=== PATIENT | male | born 1940 | race Caucasian/White ===

== ENCOUNTER → 2018-11-19 13:53 | Outpatient (CLI) | payer MEDICARE, BC, SELFPAY ==
--- NOTE | 2018-11-19 | DI.CT.S_ITS ---
PROCEDURE: CT UE RT WO CON INDICATIONS: PRIMARY OSTEOARTHRITIS OF RIGHT SHOULDER TECHNIQUE: Noncontrast 1-1.5 mm thick sections acquired from the acromioclavicular joint to the inferior scapula, with coronal and sagittal reformatting. COMPARISON: [facility] [place], CR, XR SHOULDER 2+ VIEWS RIGHT, 03/12/2018, 14:39. FINDINGS: Image quality: Diagnostic Bones: There is no acute fracture or dislocation identified involving the osseous structures of the right shoulder. No suspicious osseous lesions are present. There are severe degenerative changes of the glenohumeral joint with prominent joint space narrowing, large marginal osteophytes, bony remodeling, and degenerative cystic change. There is a very large right sided glenohumeral joint effusion. Chondrocalcinosis of the joint appears to be present. Prominent degenerative changes are noted involving the right sternoclavicular joint. Age-appropriate degenerative changes of the spine are not adequately characterized. Widening of the acromi clavicular joint is present with mild associated degenerative changes. Soft tissues: Homogeneous calcifications overlying the posterior margin of the greater tuberosity of the humeral head are present. No significant atrophy is appreciated involving the rotator cuff muscles. The please note that the tendons, ligaments, and cartilaginous structures of the elbow are not adequately characterized on CT. Included portions of the right lung and mediastinum are grossly within normal limits. There is no axillary lymphadenopathy. IMPRESSION: 1. Severe degenerative changes of the glenohumeral joint with an associated very large joint effusion. 2. Apparent chondrocalcinosis versus small intra-articular joint bodies. 3. Calcific tendinitis of the infraspinatus tendon. The Dictated by: Eliud Trotter M.D. on 11/19/2018 at 16:05 Approved by: Eliud Trotter M.D. on 11/19/2018 at 16:10
== END ==
PROVIDERS: PCP Family Medicine; Visit Provider Orthopaedic Surgery
DX: M19.011 Primary osteoarthritis, right shoulder (principal); M75.31 Calcific tendinitis of right shoulder
CPT/HCPCS: 73200

== ENCOUNTER → 2019-04-11 11:49 | Outpatient (CLI) | payer MEDICARE, BC, SELFPAY | PROVIDERS: PCP Family Medicine; Visit Provider Orthopaedic Surgery | DX: Z01.818 Encounter for other preprocedural examination (principal) | CPT/HCPCS: 93005 ==

== ENCOUNTER 2019-05-09 06:05 | Inpatient (IN) | payer MEDICARE, BC, SELFPAY ==
[2019-04-25 08:36] VITALS: BMI 25.8
[2019-05-09] VITALS (13 sets, daily range): BP systolic 106–135; BP diastolic 48–73; PULSE 51–72; RESP 14–21; TEMP 35.6–36.8; O2SAT 89–98; BMI 25.9
--- NOTE | 2019-05-09 06:00 | DI.RAD.S_ITS ---
PROCEDURE: XR SHOULDER RT 1V INDICATIONS: Post op total shoulder TECHNIQUE: One view of the shoulder were acquired. COMPARISON: None. FINDINGS: Bones: Expected appearance post total shoulder arthroplasty. Soft tissues: No suspicious soft tissue calcifications. Surgical drain in place. IMPRESSION: Expected immediate postoperative appearance, status post right shoulder arthroplasty. Dictated by: Damaso Schwartz M.D. on 05/09/2019 at 10:34 Approved by: Damaso Schwartz M.D. on 05/09/2019 at 10:35
[2019-05-09] MEDS: CELECOXIB 200 MG CAPSULE PO (06:53)
[2019-05-09] MEDS: ACETAMINOPHEN 325 MG TABLET 975 MG PO (06:54)
[2019-05-09] MEDS: PREGABALIN 75 MG CAPSULE PO (06:54)
[2019-05-09] MEDS: LACTATED RINGERS 1,000 ML 42 ML IV ×2 (06:54→08:30)
--- NOTE | 2019-05-09 07:35 | PM.PREOP ---
Pre-operative Note Interval Note History & Physical reviewed/Exam performed by Physician: Yes Changes to H&P: No
--- NOTE | 2019-05-09 07:38 | P.OP_ITS ---
Operative Date/Time/Diagnoses Date of procedure: 05/09/19 Time of procedure: 09:50 Pre-op diagnosis: Right shoulder osteoarthritis Post-op diagnosis: other (1. Same 2. Calcific tendinitis with small full- thickness anterior supraspinatus rotator cuff tear) Procedure & Clinicians Procedure: Right total shoulder replacement Same procedure as scheduled: No (Also rotator cuff repair of a small supraspinatus rotator cuff tear) Indications: The patient has had progressively worsening right shoulder pain with radiographic changes consistent with arthritis. Non-operative management has failed and the patient has requested total shoulder replacement. The risks, benefits and alternatives to surgery were discussed with the patient prior to proceeding. Risks discussed included, but were not limited to, failure to relieve pain, stiffness, infection, nerve damage, deep venous thrombosis, pulmonary embolism, stroke, coma, heart attack, permanent paralysis and , as well as the potential need for eventual revision of the prosthetic. Surgeon: Steffen Suarez Freezer Worker: Karen Tran'Brien Click Yes if Unassisted: No Anesthesia Type: General, Peripheral nerve block and Local Operative Notes Findings: Significant osteoarthritis of the right shoulder Closure Type: primary Specimen(s): none sent Prosthetic devices, grafts, tissues, transplants, or devices: Implants used in this procedure were manufactured by the [employer] and included an Altivate short stem total shoulder system with a size 12 short stem humeral component, a neutral neck, a 46 mm x 20 mm neutral [place] humeral head and a 46 mm all polyethylene E plus pegged glenoid. Applied: implant(s) Estimated Blood Loss (mL): 100 Blood products transfused: none Procedure in detail: The patient was seen in the pre-operative area, where the patient identified the right shoulder as the operative site and this was marked with my initials. The patient received pre-operative antibiotics, underwent an interscalene block, and was taken to the operating room and placed on the operative table in the supine position. After satisfactory anesthesia, a full ?time out? was performed. The patient was repositioned in the ?beach chair? position using a dedicated positioner. All pressure points were well padded, and the knees were slightly bent to prevent tension on the sciatic nerves. The right arm was prepared from the fingers to the base of the neck with ChloroPrep in the usual fashion and draped through sterile drapes. An approximately 15 cm incision was created, starting at the clavicle above the coracoid process and extended towards the deltoid insertion. The deltopectoral interval was used to access the shoulder. The cephalic vein was taken medially. A self retaining retractor was placed. The upper centimeter of the pectoralis major tendon was released. The ?three sisters? were identified and cauterized. The axillary nerve was palpated and protected throughout the case. The biceps was released from its groove and tenodesed over the top of the pectoralis major tendon. The subscapularis was released from the lesser tuberosity with a subscapularis peel and tagged for later repair. The shoulder was dislocated and a cutting guide was used for the proximal humeral osteotomy in 30 degrees of retroversion. A starter reamer was used followed by the cylindrical reamers. This continued in larger sizes in till cortical bite was achieved. Sequential broaching was then performed until a line to line fit with the reamer occurred. A proximal humeral protector was then placed. We then removed the self-retaining retractor and placed retractors to access the glenoid. The subscapularis was released with a ?360 degree release? with care being taken to protect the axillary nerve with the inferior portion of this procedure. The remnant of labrum and biceps stump were removed. The appropriate size reamer was chosen with the glenoid sizer, and the guide pin placed. The glenoid was appropriately reamed. The guide for the peripheral holes was used and the center hole enlarged. The trial glenoid was placed with good stability. We then cemented the final implant into place after irrigating the peg holes and drying them with thrombin-soaked Gelfoam. We returned our attention to the humerus, a trial humeral head was applied and a trial reduction performed. Stability was checked with 50% posterior translation, 45? external rotation at the side with the subscapularis held in the repaired position, and 70? internal rotation in the ?scarecrow position?. This was felt to be satisfactory and the appropriate implants were opened. Five holes were drilled along the humeral osteotomy and #2 TiCron sutures placed for eventual subscapularis repair. The humeral prosthetic was impacted into the humerus. The humeral head was applied when the stem was still slightly proud and impacted to both seat the head and fully seat the stem. The joint was relocated one final time. The joint was irrigated and the subscapularis repaired to the previously placed sutures using Moo-Javy sutures. The top of the subscapularis was closed to the leading edge of the supraspinatus with a figure of 8 #2 TiCron to close the rotator interval. This suture was also used to close a very small rotator cuff tear of the supraspinatus. A deep drain was placed and brought out supero- laterally. The deltopectoral interval was closed with interrupted 0 Vicryl. The subcutaneous layer was closed with 3-0 Vicryl, and the skin with a running 3-0 V-Lock suture and SteriStrips. An Aquacel Ag dressing was applied, the patient?s arm was placed in a sling, and the patient was taken to recovery having tolerated the procedure well. Complications: none Condition: stable Disposition: PACU Plan for aftercare: The patient will be maintained on a standard total shoulder replacement protocol with passive range of motion limited to 90 degrees forward flexion, 0 degrees external rotation at the side, 0 degrees abduction and internal rotation to the body. The patient will receive aspirin and sequential compression devices for DVT prophylaxis. The patient will be discharged home when safe for the home environment, likely tomorrow.
--- NOTE | 2019-05-09 08:05 | SUR.PREOP ---
Block start time [0739] . Monitoring initiated and maintained throughout procedure. Oxygen and medications given per anesthesiologist instructions. Patient remained stable throughout procedure, no adverse reactions noted. Block end time [0752 ].
[2019-05-09] MEDS: CEFAZOLIN 1 GM VIAL IV (08:12)
--- NOTE | 2019-05-09 08:28 | SUR.OPER ---
Beach chair with Schlein shoulder positioner. Lower body on padded OR bed. Head in foam padded head cradle, secured with straps. Non-operative arm secured <90 degrees abduction. Pillow under knees. Safety belt at thigh. Cloth tape over blanket over lower legs.
--- NOTE | 2019-05-09 08:35 | PM.PROC.1 ---
Procedures Date/Time Date of procedure: 05/09/19 Time of procedure: 07:45 General Procedure description: Ultrasound guided interscalene brachial plexus nerve block for post op pain control after total shoulder arthroplasty by Dr. Suarez. Risks and benefits of procedure discussed with patient. ASA monitoring applied to patient. 02 given via nasal cannula. 1 mg Versed and 50 mcg fentanyl given for procedural sedation. Skin site was prepped with chlorhexidine and allowed to fully dry. Sterile gloves, mask, hat and probe cover were used to maintain sterility. 2% lidocaine and 30ga needle was used to make a small skin wheal at needle insertion site. Under ultrasound guidance, a 21ga 50mm Pajunk needle was directed into the interscalene groove (middle/anterior scalenes) near the brachial plexus. Patient reported no parasthesias. After negative aspiration, 20 mL 0.5% ropivicaine and 10mg dexamethasone were injected around brachial plexus. Patient tolerated procedure well.
[2019-05-09] MEDS: TRANEXAMIC ACID 1,000 MG VIAL 1000 MG INJ (08:36)
[2019-05-09] MEDS: THROMBIN (RECOMBINANT) 5,000 UNIT VIAL 5000 UNIT TOP (08:37)
[2019-05-09] MEDS: BUPIVACAINE 0.5% W/ EPI (PF) VIAL 30 ML INJ (08:37)
--- NOTE | 2019-05-09 08:55 | PC.NURSE ---
Day shift: Pt not on AC unit at this time.
--- NOTE | 2019-05-09 10:31 | SUR.PHASEI ---
REPORT CALLED TO STEFANIA MONTERO ON ACUTE CARE FLOOR. PT IN STABLE CONDITION, VSS. IV SITE CLEAR AND INFUSING WITHOUT DIFFICULTLY. DRSG TO SURGICAL SHOULDER OBSERVED TO BE C/D/I. HEMAVAC IN PLACE WITH COMPRESSION SUCTION. PT REPORTS DULL SENSTATION AND WEAK STRENGTH RELATED TO NERVE BLOCK. SURGICAL EXTREMITY WARM TO TOUCH, PINK IN COLOR, AND +PULSE. SLING IN PLACE OF OPERATIVE EXTREMITY. PT DENIES ANY PAIN/DISCOMFORT OR NAUSEA.
--- NOTE | 2019-05-09 10:47 | SUR.PHASEI ---
PT TRANSFERRED TO ACUTE CARE FLOOR IN STABLE CONDITION, VSS. BEDSIDE REPORT GIVEN TO STEFANIA WRIGHT UPON ARRIVAL TO ACUTE CARE FLOOR. PT FAMILY IN ROOM UPON ARRIVAL. TRANSFERRED CARE OF PT TO STEFANIA WRIGHT AT THIS TIME.
--- NOTE | 2019-05-09 11:07 | PC.NURSE ---
Day shift: Pt on unit at approx 1100 from PACU. Family in room for support. Denies ay pain or chest pain. VS ok. RA 97%. Agrees to not get OOB w/o help from staff. Call light in reach.
[2019-05-09] MEDS: LACTATED RINGERS 1,000 ML 125 ML IV ×2 (12:00→19:23)
[2019-05-09] MEDS: ACETAMINOPHEN 325 MG TABLET PO ×3 (12:55→23:58)
[2019-05-09] MEDS: IBUPROFEN 400 MG TABLET PO ×3 (12:55→23:58)
--- NOTE | 2019-05-09 13:46 | PT.IIE ---
Current Diagnoses Primary osteoarthritis, right shoulder (05/09/19) Surgery Performed Operation Date: 05/09/19 07:45 Actual Procedures p Total Shoulder Arthroplasty(Right) - Steffen Suarez MD Surgical History (Last Updated 04/25/19 @ 09:24 by Agata Cohen, RN) History of carpal tunnel surgery of left wrist (Acute) History of colonoscopy with polypectomy (Acute) History of right cataract extraction (Acute) Hx of arthroscopy of left knee (Acute) Hx of shoulder surgery (Acute) S/P cervical spinal fusion (Acute 12/03/16) Medical History (Last Updated 04/25/19 @ 09:14 by Agata Cohen RN) Asthma (Acute) BCC (basal cell carcinoma), eyelid (Acute) Former smoker (Acute) Hearing impaired (Acute) Left shoulder pain (Acute) Migraines (Acute) Osteoarthritis (Acute) Physical Therapy Inpatient Evaluation/Re-Eval M1 PT/OT-IP Prior Functional Status Start: 05/09/19 11:03 Freq: NEEDED Status: Active Protocol: Document 05/09/19 13:46 RS (Rec: 05/09/19 13:57 RS [id number]) Medical Review Prior Functional Status Medical History Reviewed Yes Diet/Fluid Consistency Regular Communication no known deficits Mobility and Gait ind without device Activities of Daily Living and IADL's denies needing assist for any self-care Prior Functional Level (Other details) considers himself very active Social History Household Members spouse Living Arrangements House Number of Floors (Floors) Two Floors Number of Stairs To Enter/Railing? 3STE, full flight inside Employment Status Retired M2 PT-IP Current Condition Start: 05/09/19 11:03 Freq: NEEDED Status: Active Protocol: Document 05/09/19 13:46 RS (Rec: 05/09/19 13:57 RS [id number]) Physical Therapy Current Condition Current Condition Evaluation Date 05/09/19 Treatment Diagnosis R TSA Onset Date 05/09/19 Precautions Shoulder Precautions Sling PROM Internal Rotation to Body No External Rotation No Abduction Forward Flexion to 90 degrees Pendulums M3 PT-IP Subjective Start: 05/09/19 11:03 Freq: NEEDED Status: Active Protocol: Document 05/09/19 13:46 RS (Rec: 05/09/19 13:57 RS [id number]) Subjective Physical Therapy Visit Type Type Initial Evaluation Visit Start Time 13:00 Visit Stop Time 13:46 Total Visit Minutes 46 Physical Therapy Visit Comments Patient Comments Pt reports doing well, arm/ hand is still quite numb, denies any other issues, very agreeable to participate in therapy. Patient Goals go home Therapy Pain Assessment Pain When Pain Assessed At Rest Pain Present Pain Present Denied Pain M4 PT-IP Mobility and Gait Start: 05/09/19 11:03 Freq: NEEDED Status: Active Protocol: Document 05/09/19 13:46 RS (Rec: 05/09/19 13:57 [id number]) PT-Bed Mobility Assessment Supine to Sit Supine to Sit Standby Assistance Sit to Supine Sit to Supine Standby Assistance Scooting Scooting to Edge of Bed Standby Assistance Scooting Up and Down in Bed Standby Assistance PT-Transfer Assessment Sit to and From Stand Sit to and from Stand Standby Assistance Equipment Transfer Assistive Device None Transfers Transfer Destination Chair Transfer Technique walked Transfer Ability Level of Assist Standby Assistance Comments Mobility Comments Pt mobilizes well, RUE really is flaccid still, but able to perform all bed mobility and transfers without additional physical assist. Gait Assessment Gait Gait Assistance Required: Standby Assistance Distance (Feet) 280 Assistive Devices Assistive Device None Gait Deviations General Gait Pattern Within Normal Limits Wide Based Gait Comments Gait Comments Pt quite stable and with mostly normal gait quality except slightly wide HAZEL with a little extra lateral weight shifting. Stair Climbing Assessment Comments Stair Climbing Comments not tested this session PT-Balance Assessment Sitting Balance and Reactions Static Sitting Balance Ability Normal Dynamic Sitting Balance Ability Normal Standing Balance and Reactions Static Standing Balance Ability Normal Dynamic Standing Balance Ability Good Device Used none M5 PT-IP Objective Assessments Start: 05/09/19 11:03 Freq: NEEDED Status: Active Protocol: Document 05/09/19 13:46 RS (Rec: 05/09/19 13:57 RS [id number]) Orientation Orientation/Cognition Level of Alertness Alert Orientation Name Age Birthday Month Date Year Day of Week Place Situation Language Function Ability No Deficits Noted Safety Awareness Understands Safety Issues Memory Description No Deficits Noted Gross Range of Motion Upper Extremity ROM Assessment Right Impaired Lower Extremity ROM Assessment Within Functional Limits Strength Upper Extremity Strength Assessment Right Impaired Lower Extremity Strength Assessment Within Functional Limits Sensation Assessment Sensation Gross Sensation Right UE Impaired Light Touch Impaired Proprioception (Position) Impaired Sensation Description Numbness M6 PT-IP Treatment Start: 05/09/19 11:03 Freq: NEEDED Status: Active Protocol: Document 05/09/19 13:46 RS (Rec: 05/09/19 13:57 RS [id number]) Physical Therapy Treatment Education Education Provided Precautions Weight Bearing Status Post-Op Packet Safety M7 PT-IP Assessment and Plan Start: 05/09/19 11:03 Freq: NEEDED Status: Active Protocol: Document 05/09/19 13:46 RS (Rec: 05/09/19 13:57 RS [id number]) PT Summary Assessment and Plan Potential Rehabilitation Potential Excellent Status of Condition at Evaluation Stable Summary Assessment Summary Pt presents with the expected deficits of decreased ROM/ strength/sensation of RUE after a R TSA. Despite this, pt is able to mobilize fairly well, currently requiring only SBA for management of IV pole and to monitor after such a recent surgery. Pt will be safe to go home tomorrow with after 1 more PT session for stair training and after OT evaluation for ADLs and family training. Pt will eventually benefit from outpatient PT once cleared by surgeon. Goals Bed Mobility Goal Independent Transfer Goal Independent Gait Goal Independent Gait Distance 500 Other Goals up/down full slight of stairs with railing and supervision Days to Meet Goals 1 Frequency of Treatment Frequency Of Treatment Once a Day Treatment Plan Physical Therapy Treatment Plan Bed Mobility Training Transfer Training Gait Training Therapeutic Exercise Balance Retraining Post Op Education Discharge Planning Hot or Cold Pack Neuromuscular Re-ed Coordination Retraining Manual Therapy Other Recommendations and Next Treatment stair training Focus Recommendations To Nursing Amount of Assist Needed Standby Assistance Discharge Recommendations PT Discharge Recommendations Home with Assistance Outpatient PT
--- NOTE | 2019-05-09 18:14 | PC.NURSE ---
Addendum entered by Jennifer Thompson R.N. 05/09/19 21:25: Pt visiting w/family all evening. Reuesting med for discomfort 410. Med w/percolone as per orders @ 2039. Pt states had good relief. Dsg remains CDI. IVF continue as per orders. Call light w/in reach, bed alarm on for pt safety. Continue as per orders. Original Note: Pt awake, visiting w/family. George discomfort at this time. Dsg to the right shoulder CDI, arm in sling. CMS to extremity ++ IV LR @ 125cc/hr via pump infusing into LFA w/o incidense. Stable post op course. Call light w/in reach. Pt calls appropriately for needs.
[2019-05-09] MEDS: ASPIRIN EC 81 MG TABLET PO (20:33)
[2019-05-09] MEDS: DOCUSATE 100 MG CAPSULE PO (20:34)
[2019-05-09] MEDS: OXYCODONE IR 5 MG TABLET PO (20:40)
[2019-05-10] VITALS: BP 121/62; PULSE 61; RESP 16; TEMP 36.6; O2SAT 96
[2019-05-10] MEDS: OXYCODONE IR 5 MG TABLET PO ×2 (01:49→07:56)
[2019-05-10] MEDS: LACTATED RINGERS 1,000 ML 125 ML IV (03:25)
[2019-05-10] MEDS: ACETAMINOPHEN 325 MG TABLET PO ×2 (04:23→07:44)
[2019-05-10] MEDS: IBUPROFEN 400 MG TABLET PO ×2 (04:24→07:44)
[2019-05-10 04:32] VITALS: BP 126/66; PULSE 58; RESP 16; TEMP 36.4; O2SAT 97
[2019-05-10 05:19] LABS: Hematocrit 35.8 % (41-53); Hemoglobin 12.2 g/dL (13.5-17.5); Mean Corpuscular Hemoglobin 31.1 PG (26-34); Mean Corpuscular Volume 91.4 fL (80-100); Platelet Count 165 X10^3/uL (150-400); Red Blood Cell Count 3.92 X10^6/uL (4.5-5.9); Red Cell Distribution Width 13.5 % (11.6-14.8); White Blood Cell Count 6.7 X10^3/uL (4.5-11.0)
[2019-05-10 07:30] VITALS: BP 117/62; PULSE 73; RESP 15; TEMP 36.4; O2SAT 98
[2019-05-10] MEDS: ASPIRIN EC 81 MG TABLET PO (07:44)
[2019-05-10] MEDS: DOCUSATE 100 MG CAPSULE PO (07:46)
--- NOTE | 2019-05-10 10:02 | PM.DS.1 ---
History of Present Illness Date Patient Seen: 05/10/19 Time Patient Seen: 10:03 Chief complaint: [id number] Narrative: Hospital day 2, postop day 1 following right total shoulder arthroplasty by Dr. Suarez. Patient remained stable postoperatively. Using sling regularly. I did work with PT well. He does have help at home. He is scheduled to go to [facility] in [place]. Patient desiring to go home today. Discharge Providers Date of admission: 05/09/19 06:05 Discharge Date: 05/10/19 Primary care physician: Alexander Short MD Consults: 05/09/19 10:54 Consult to Discharge Planning Routine Comment: Consult to Physical Therapy Evaluate & Treat Comment: 90 FF, 0 ER, 0 Abd, IR to body Physician Instructions: Evaluate and Treat Discharge provider: Mekhi Carter PA-C Summary Discharge Diagnosis: Status post right total shoulder arthroplasty Hospital Course: Patient brought to hospital on 05/09/2019 for above-noted surgery. He remained stable postoperatively. Progressed with PT. Ready for discharge home on postop day 1. Status at Discharge Cognitive/behavioral status at discharge: oriented Overall status at discharge: patient is progressing back to baseline Time Spent with Patient Less than 30 minutes Exam Vital Signs (past 8 hours): - 05/10/19 04:32 05/10/19 07:30 Temperature 97.5 F L 97.5 F L Pulse Rate 58 L 73 Respiratory Rate 16 15 Blood Pressure 126/66 117/62 Pulse Oximetry 97 98 Oxygen Delivery Method Room Air Oxygen Flow Rate 0 Narrative Exam Narrative: Alert, oriented no acute distress resting in bed. Right arm. Arm in sling. Aquacel dressing to right shoulder is dry without drainage or inflammation. Hemovac placed. Street Engineer strong and equal. Pulses and sensation to hand symmetrical. Objective Labs Result Diagrams: 05/10/19 04:43 Labs: Laboratory Results - last 24 hr 05/10/19 04:43 WBC 6.7 RBC 3.92 L Hgb 12.2 L Hct 35.8 L MCV 91.4 MCH 31.1 MCHC 34.0 RDW 13.5 Plt Count 165 Discharge Plan Discharge Plan Patient Disposition: Home Discharge comment: Discharged home today after cleared by PT/OT. Will use right arm sling x6 weeks postop. Discharge Med Rec/Prescriptions Prescriptions: New acetaminophen 325 mg Tablet 325 mg PO Q4H Qty: 30 RF: 0 aspirin 81 mg Tablet,Delayed Release (Dr/Ec) 81 mg PO BID Qty: 60 RF: 0 ibuprofen 400 mg Tablet 400 mg PO Q4H Qty: 30 RF: 0 oxycodone 5 mg Tablet 5 mg PO Q3HR PRN (Reason: Pain, Moderate (4-6)) Qty: 30 RF: 0 Continued Vitamin B-12 250 MCG tablet 1,000 mg PO QDAY Qty: 0 RF: 0 Vitamin D3 4,000 UNIT capsule 4,000 u PO QDAY Qty: 0 RF: 0 Follow up/Referrals: Alexander Short MD [Primary Care Provider] - Provider Discharge Instructions Diet: Diet as Tolerated Activity: Use right arm sling x6 weeks postop. No lifting or carrying with right arm. Right arm passive range of motion forward flexion 90?, external rotation 0?, AB duction 0?. May do Codman/pendulum exercises as needed. Cold/Heat Therapy: Cold pack to right shoulder as needed. Skin/Wound/Dressing Care Report to your healthcare provider any signs of infection, such as:: chills, fever, night sweats, increased pain, unusual drainage and unusual redness Dressing: Keep Aquacel dressing in place until postop visit. May shower with dressing on. Visit Report/Discharge Packet Instructions: DI for Shoulder Replacement Discharge Data Primary Care Provider: Alexander Short Attending Provider: Steffen Suarez Admit Date/Time: 05/09/19 06:05
--- NOTE | 2019-05-10 10:06 | P.DS_ITS ---
History of Present Illness Date Patient Seen: 05/10/19 Time Patient Seen: 10:03 Chief complaint: [id number] Narrative: Hospital day 2, postop day 1 following right total shoulder arthroplasty by Dr. Suarez. Patient remained stable postoperatively. Using sling regularly. I did work with PT well. He does have help at home. He is scheduled to go to [facility] in [place]. Patient desiring to go home today. Discharge Providers Date of admission: 05/09/19 06:05 Discharge Date: 05/10/19 Primary care physician: Alexander Short MD Consults: 05/09/19 10:54 Consult to Discharge Planning Routine Comment: Consult to Physical Therapy Evaluate & Treat Comment: 90 FF, 0 ER, 0 Abd, IR to body Physician Instructions: Evaluate and Treat Discharge provider: Mekhi Carter PA-C Summary Discharge Diagnosis: Status post right total shoulder arthroplasty Hospital Course: Patient brought to hospital on 05/09/2019 for above-noted surgery. He remained stable postoperatively. Progressed with PT. Ready for discharge home on postop day 1. Status at Discharge Cognitive/behavioral status at discharge: oriented Overall status at discharge: patient is progressing back to baseline Time Spent with Patient Less than 30 minutes Exam Vital Signs (past 8 hours): - 05/10/19 04:32 05/10/19 07:30 Temperature 97.5 F L 97.5 F L Pulse Rate 58 L 73 Respiratory Rate 16 15 Blood Pressure 126/66 117/62 Pulse Oximetry 97 98 Oxygen Delivery Method Room Air Oxygen Flow Rate 0 Narrative Exam Narrative: Alert, oriented no acute distress resting in bed. Right arm. Arm in sling. Aquacel dressing to right shoulder is dry without drainage or inflammation. Hemovac placed. Sas Analyst strong and equal. Pulses and sensation to hand symmetrical. Objective Labs Result Diagrams: 05/10/19 04:43 Labs: Laboratory Results - last 24 hr 05/10/19 04:43 WBC 6.7 RBC 3.92 L Hgb 12.2 L Hct 35.8 L MCV 91.4 MCH 31.1 MCHC 34.0 RDW 13.5 Plt Count 165 Discharge Plan Discharge Plan Patient Disposition: Home Discharge comment: Discharged home today after cleared by PT/OT. Will use right arm sling x6 weeks postop. Discharge Med Rec/Prescriptions Prescriptions: New acetaminophen 325 mg Tablet 325 mg PO Q4H Qty: 30 RF: 0 aspirin 81 mg Tablet,Delayed Release (Dr/Ec) 81 mg PO BID Qty: 60 RF: 0 ibuprofen 400 mg Tablet 400 mg PO Q4H Qty: 30 RF: 0 oxycodone 5 mg Tablet 5 mg PO Q3HR PRN (Reason: Pain, Moderate (4-6)) Qty: 30 RF: 0 Continued Vitamin B-12 250 MCG tablet 1,000 mg PO QDAY Qty: 0 RF: 0 Vitamin D3 4,000 UNIT capsule 4,000 u PO QDAY Qty: 0 RF: 0 Follow up/Referrals: Alexander Short MD [Primary Care Provider] - Provider Discharge Instructions Diet: Diet as Tolerated Activity: Use right arm sling x6 weeks postop. No lifting or carrying with right arm. Right arm passive range of motion forward flexion 90?, external rota tion 0?, AB duction 0?. May do Codman/pendulum exercises as needed. Cold/Heat Therapy: Cold pack to right shoulder as needed. Skin/Wound/Dressing Care Report to your healthcare provider any signs of infection, such as:: chills, fever, night sweats, increased pain, unusual drainage and unusual redness Dressing: Keep Aquacel dressing in place until postop visit. May shower with dressing on. Visit Report/Discharge Packet Instructions: DI for Shoulder Replacement Discharge Data Primary Care Provider: Alexander Short Attending Provider: Steffen Suarez Admit Date/Time: 05/09/19 06:05
--- NOTE | 2019-05-10 10:58 | CM.DANOTE ---
DCP/Assessment: Reviewed chart. Patient is a 78yr old male admitted to [facility] for right TSA performed on 05-09-[address] Suarez. PCP is Dr. Short. Primary payor is 1)Medicare 2)[facility] out of [facility]. Met with patient explained CM/SW role. Patient in bed, alert and oriented at time of visit. Family at bedside. Patient reports that he plans to d/c home today. Patient denies any d/c planning needs and family confirms that patient will have support. Patient scheduled to see therapy prior to discharge. No additional needs identified. P: Home today. JOANNE Jones Discharge Planning/Care Management Advanced directive, confirm from FAMILY Start: 05/09/19 11:57 Freq: Q24H Status: Active Protocol: Document 05/09/19 11:58 YAD (Rec: 05/09/19 11:59 YAD [id number]) Advance Directive, confirm on record Time 11:59 Person contacted Pt's spouse Copy received No CM Discharge Assessment Start: 05/10/19 10:56 Freq: Status: Active Protocol: Document 05/10/19 10:56 KJS (Rec: 05/10/19 10:58 KJS [id number]) Discharge Planning Assessment Assigned [address] Man JOANNE Jones Contact Information Deja Ramos (spouse) [phone] Advance Directives? Yes Advance Directives on File No History Provided By Patient Family Member Significant Other Medical Record Prior Living Arrangements House Household Members spouse Type of transporation used prior to Drives own vehicle admit Independent with ADL's Yes Is patient alert and oriented? Yes Caregiver for Another No Barriers to Discharge No Discharge Plan Home Transportation Arrangement Family to provide transport. Referrals Initiated None needed Whiteboard Updated in Patient Room with Yes name and ext. 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 No Height 170.18 cm Weight 74.843 kg Body Mass Index (BMI) 25.8 Hearing Ability Hard of Hearing Use of Hearing Aid Visual Assist Magnifying Glass Dentition Type Teeth, Natural Present Barriers to Learning None Other Aids No Hx Anesthesia Reactions No Hx Family Anesthesia Reaction No Hx Malignant Hyperthermia No Hx Blood Transfusions No Anesthesia Review Requested Yes: PAC Courtesy re: Abnormal Pre-op EKG Contact Lens Curve Grinder No alcohol intake current alcohol intake frequency a few times a week Smoking Status Former smoker how long ago did patient quit smoking Quit greater than 40 years ago Substance Use Type does not use Pain Present Pain Reported Musculoskeletal Symptoms Joint Pain Limited Range of Motion Neck Pain History of Falling (Recent or History of No ) Patient is completely paralyzed or No completely immobile Mental Status Oriented to own ability Is patient on oxygen? No Does patient have GÓMEZ/SOB No Hx Sleep Apnea No Currently Taking a Beta Manish No Can You Climb a Flight of Stairs Without Yes SOB Hx Chest Pain No Hx SOB No Hx Syncope or Dizziness No Anti-Coagulant Therapy No Has a Psychiatric Aides Teacher No Cardiac Testing No Hx Pacemaker/ICD No Pacemaker Rep Required? No Cardiac Clearance Received Not Applicable Diet Type At Home Regular dysphagia No Urinary Catheter Present No Hx Urinary Self Catheterization No Diabetes No Hx Drug Resistant Organism No Presence of External or Internal Medical Yes: Cervical hardware Devices Have you traveled outside the [facility] in the last 30 days? Comment Marital Status Lives With spouse Prior Living Arrangements House Number of Floors (Floors) 3 or More Floors Support System Child/Children Spouse Does the Patient Have Assistance After Yes Surgery Patient Discharge Plan Description Return Home Comment Pt advised overnight length of stay per surgeon's office Feels Safe in Current Environment Yes Been Physically Hurt or Threatened By a No Person in Current Environment Do you have thoughts of harming yourself None or others? Are you currently considering suicide? No Do you have a plan to hurt yourself or No Plan others? Do You Have Any Spiritual Beliefs That No May Affect Your HC Choices? Do You Have Any Cultural Practices That No May Affect Your HC Choices? Spiritual Referral None Comment Yazdanism Who Can We Speak to About Patient's Care Family, friends Identifying Code for Release of Patient Declines to issue Information Health Care Proxy/Next of Kin Deja () Health Care Proxy Emergency Contact Name Deja () Emergency Contact Advance Directives? Yes Advance Directives on File No Requested Patient Bring Advanced Yes Directives DOS Power of Equipment Sales Specialist Yes Power of Equipment Sales Specialist Name Deja () Power of Equipment Sales Specialist PAC Instructions Durable medical equipment Medications to take/avoid Nasal antibiotic No ETOH/petroleum product on skin DOS NPO Post-op transportation Pre-surgical wash Sensory aids Sturdy shoes/comfortable clothes Do not bring valuables and remove jewelry
--- NOTE | 2019-05-10 11:16 | PC.NURSE ---
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 Paperwork signed and all questions answered. Pt has all personal belongings and MD script.
--- NOTE | 2019-05-10 12:24 | PT.IPTN ---
Current Diagnoses Primary osteoarthritis, right shoulder (05/09/19) Surgery Performed Operation Date: 05/09/19 07:45 Actual Procedures p Total Shoulder Arthroplasty(Right) - Steffen Suarez MD Physical Therapy Treatment Note M2 PT-IP Current Condition Start: 05/09/19 11:03 Freq: NEEDED Status: Discharge Protocol: Document 05/09/19 13:46 RS (Rec: 05/09/19 13:57 RS [id number]) Physical Therapy Current Condition Current Condition Evaluation Date 05/09/19 Treatment Diagnosis R TSA Onset Date 05/09/19 Precautions Shoulder Precautions Sling PROM Internal Rotation to Body No External Rotation No Abduction Forward Flexion to 90 degrees Pendulums M3 PT-IP Subjective Start: 05/09/19 11:03 Freq: NEEDED Status: Discharge Protocol: Document 05/10/19 12:16 IJS (Rec: 05/10/19 12:20 IJS [id number]) Subjective Physical Therapy Visit Type Type Treatment Note Visit Start Time 11:00 Visit Stop Time 11:08 Total Visit Minutes 8 Physical Therapy Visit Comments Patient Comments Plans to go home [place] Patient Goals Home today Therapy Pain Assessment Pain Present Pain Present Denied Pain M4 PT-IP Mobility and Gait Start: 05/09/19 11:03 Freq: NEEDED Status: Discharge Protocol: Document 05/10/19 12:16 IJS (Rec: 05/10/19 12:20 IJS [id number]) PT-Transfer Assessment Sit to and From Stand Sit to and from Stand Independent Equipment Transfer Assistive Device None Orthotic/Prosthetic Devices or Brace: No Transfers Transfer Technique walking Transfer Ability Level of Assist Independent Comments Mobility Comments Up in room, dressed and sling in place. Gait Assessment Gait Gait Assistance Required: Independent Distance (Feet) 500 Able to Maintain Weight Bearing Status Yes During Gait Assistive Devices Assistive Device None Orthotic/Prosthetic Devices or Brace: No Gait Deviations General Gait Pattern Within Normal Limits Stair Climbing Assessment Evaluation Level of Assist On Stairs Independent Standby Assistance Devices Stair Climbing Assistive Devices Left Railing Technique/Endurance Stair Climbing Direction Ascend and Descend Stair Climbing Technique Step Over Step Stair Climbing Set # Repetitions (reps) 1 Comments Stair Climbing Comments He is not concerned about stairs at home. PT-Balance Assessment Sitting Balance and Reactions Static Sitting Balance Ability Normal Dynamic Sitting Balance Ability Normal Standing Balance and Reactions Static Standing Balance Ability Normal Dynamic Standing Balance Ability Normal M5 PT-IP Objective Assessments Start: 05/09/19 11:03 Freq: NEEDED Status: Discharge Protocol: Document 05/10/19 12:20 IJS (Rec: 05/10/19 12:24 IJS [id number]) Orientation Orientation/Cognition Level of Alertness Alert Orientation Name Age Birthday Month Date Year Day of Week Place Situation Memory Description No Deficits Noted Gross Range of Motion Upper Extremity ROM Assessment Right Impaired Lower Extremity ROM Assessment Within Functional Limits Strength Upper Extremity Strength Assessment Right Impaired Lower Extremity Strength Assessment Within Functional Limits Comments Strength Comments Rightr arm in sling Coordination Assessment Gross Coordination Gross Coordination WNL Muscle Tone Muscle Tone WNL Yes M6 PT-IP Treatment Start: 05/09/19 11:03 Freq: NEEDED Status: Discharge Protocol: Document 05/09/19 13:46 RS (Rec: 05/09/19 13:57 RS [id number]) Physical Therapy Treatment Education Education Provided Precautions Weight Bearing Status Post-Op Packet Safety M7 PT-IP Assessment and Plan Start: 05/09/19 11:03 Freq: NEEDED Status: Discharge Protocol: Document 05/10/19 12:20 IJS (Rec: 05/10/19 12:24 IJS [id number]) PT Summary Assessment and Plan Potential Rehabilitation Potential Good Status of Condition at Evaluation Stable Summary Impairments Pain ROM Strength Assessment Summary POD #1 stable with mobility and ready for discharge home with family. Outpatient PT already set up. Goals Bed Mobility Goal Independent Transfer Goal Independent Gait Goal Independent Gait Distance 500 Other Goals up/down full slight of stairs with railing and supervision Discharge Recommendations PT Discharge Recommendations Home with Assistance Outpatient PT
--- NOTE | 2019-05-10 13:22 | OT.IP.EVAL ---
Current Diagnoses Primary osteoarthritis, right shoulder (05/09/19) Surgery Performed Operation Date: 05/09/19 07:45 Actual Procedures p Total Shoulder Arthroplasty(Right) - Steffen Suarez MD Past Medical History (Last Updated 04/25/19 @ 09:14 by Agata Cohen, RN) Asthma (Acute) BCC (basal cell carcinoma), eyelid (Acute) Former smoker (Acute) Hearing impaired (Acute) Left shoulder pain (Acute) Migraines (Acute) Osteoarthritis (Acute) Surgical History (Last Updated 04/25/19 @ 09:24 by Agata Cohen RN) History of carpal tunnel surgery of left wrist (Acute) History of colonoscopy with polypectomy (Acute) History of right cataract extraction (Acute) Hx of arthroscopy of left knee (Acute) Hx of shoulder surgery (Acute) S/P cervical spinal fusion (Acute 12/03/16) Occupational Therapy Inpatient Evaluation/Re-Eval M1 PT/OT-IP Prior Functional Status Start: 05/10/19 13:03 Freq: NEEDED Status: Active Protocol: Document 05/10/19 10:30 CCC (Rec: 05/10/19 13:22 [facility] [id number]) Medical Review Prior Functional Status Medical History Reviewed Yes Diet/Fluid Consistency Regular Communication no known deficits Mobility and Gait ind without device Activities of Daily Living and IADL's denies needing assist for any self-care Prior Functional Level (Other details) considers himself very active Social History Household Members spouse Living Arrangements House Number of Floors (Floors) Two Floors Number of Stairs To Enter/Railing? Pt has 3 steps to enter, and full flight inside. Home Environment Standard Height Toilet Tub/Shower M2 OT-IP Current Condition Start: 05/10/19 13:03 Freq: Status: Active Protocol: Document 05/10/19 10:30 CCC (Rec: 05/10/19 13:22 [facility] [id number]) Occupational Therapy Current Condition Current Condition Evaluation Date 05/10/19 Treatment Diagnosis S/P R TSA, muscle weakness Diagnosis Onset Date 05/09/19 Post Operative Precautions Shoulder Precautions Sling Internal Rotation to Body No External Rotation No Abduction Forward Flexion to 90 degrees Pendulums M3 OT- IP Subjective and Pain Start: 05/10/19 13:03 Freq: Status: Active Protocol: Document 05/10/19 10:30 CCC (Rec: 05/10/19 13:22 [facility] [id number]) OT- Subjective Occupational Therapy Visit Type Type Initial Evaluation Visit Start Time 10:30 Visit Stop Time 11:00 Total Visit Minutes 30 Occupational Therapy Visit Comments Patient Comments Pt wanting to go home. OT Pain Assessment Pain When Pain Assessed At Rest Pain Present Pain Present Pain Reported Location Right Shoulder Intensity 2 Scale Used Numeric (1 - 10) M4 OT- IP ADL's Start: 05/10/19 13:03 Freq: Status: Active Protocol: Document 05/10/19 10:30 [facility] (Rec: 05/10/19 13:22 [facility] [id number]) OT ADL-Dressing General Eval Upper Body Dressing Ability Maximum Assistance Lower Body Dressing Ability Moderate Assistance Comments OT Dressing Comments Pt needing assist for socks and shoes, and MAX A for sling management needs. Pt's needing to practice several times and at the end of the session able to show good safety for sling management. Pt's daughter has good awareness and safety for all however will not be staying with the pt. OT ADL-Toileting Comments OT Toileting Comments Pt SBA to get on and off the toilet. OT ADL-Bathing Comments OT Bathing Comments Pt refusing to shower and states will be okay to shower and feels that he does not need a shower chair or tub bench. OT suggested for safety especially since pt tends to want to move his right shoulder. Easier to sit to shower chair/tub bench so that his arm can rest on his lap. Pt's daughter states to look into shower chair or bench for ADL instruction for shoulder information given. M6 OT- IP Functional Cognition Start: 05/10/19 13:03 Freq: Status: Active Protocol: Document 05/10/19 10:30 [facility] (Rec: 05/10/19 13:22 [facility] [id number]) Cognitive Factors Limiting Selfcare Function Cognitive Ability Level of Alertness Alert Patient Orientation Name Place Situation Attention Span Ability Capable of Focused Attention Capable of Sustained Attention Ability to Follow Commands Able to Follow One Step Commands Memory Description No Deficits Noted Safety Awareness Decreased Ability to Apply Precautions Underestimates Need for Assistance Cognitive Comments Cognitive Assessment Comments Pt a bit impulsive and needing cues not to move his right shoulder while assisting to get sling on. In addition when pendulums tried, pt tends to elevate his right shoulder and therefore suggested pt to just focus on dangling for now . M7 OT- IP Mobility and Balance Start: 05/10/19 13:03 Freq: Status: Active Protocol: Document 05/10/19 10:30 [facility] (Rec: 05/10/19 13:22 [facility] [id number]) OT-Transfer Assessment Sit to and From Stand Sit to and from Stand Standby Assistance Transfers Transfer Ability Standby Assistance Comments Mobility Comments SBA , recommended that pt wear well fitting shoes. Pt's slipper loose and not wearing the heal up. OT- Balance Assessment Sitting Balance and Reactions Static Sitting Balance Ability Normal Dynamic Sitting Balance Ability Good Standing Balance and Reactions Static Standing Balance Ability Good M8 OT- IP Objective Assessments Start: 05/10/19 13:03 Freq: Status: Active Protocol: Document 05/10/19 10:30 [facility] (Rec: 05/10/19 13:22 [facility] [id number]) OT Gross Range of Motion Upper Extremity Range of Motion Assessment Right Impaired OT Strength Upper Extremity Strength Assessment Right Impaired OT-Muscle Tone Assessment Muscle Tone WNL Yes M9 OT- IP Assessment and Plan Start: 05/10/19 13:03 Freq: Status: Active Protocol: Document 05/10/19 10:30 [facility] (Rec: 05/10/19 13:22 [facility] [id number]) OT Summary Assessment and Plan Potential Rehabilitation Potential Good Analytic Complexity at Evaluation Low Summary OT Impairments Pain Dressing Bathing Progress Towards Goals Progressing Toward Goals Assessment Summary Pt low complexity and able to show good safety and awareness of how to assist pt for all ADl, sling management and function mobility. Pt being discharged home. Goals Patient/Caregiver Education Goal Demonstrate Post-Op Precautions Caregiver Independent Assisting Patient Days to Meet Goals 1 Frequency of Treatment Frequency Of Treatment Once a Day Treatment Plan OT Treatment Plan Patient/Family Education Discharge Planning Discharge Recommendations OT Discharge Recommendations Home with Assistance Outpatient PT Home Equipment Needs shower chair versus tub bench
== END 2019-05-10 11:18 | disposition home or self-care (01) | DRG 483 ==
PROVIDERS: Admitting Provider Orthopaedic Surgery; PCP Family Medicine; Visit Provider Orthopaedic Surgery
PROC: 0RQJ0ZZ Repair Right Shoulder Joint, Open Approach (ICD-10-PCS; CPT 23472; principal; 2019-05-09 07:45)
DX: M19.011 Primary osteoarthritis, right shoulder (principal); M75.31 Calcific tendinitis of right shoulder; M75.121 Complete rotator cuff tear or rupture of right shoulder, not specified as traumatic; Z87.891 Personal history of nicotine dependence
CPT/HCPCS: 64450; 73020; 85027; 97161; 97165; 97530; C1776; J0690; J2250; J3010

== ENCOUNTER → 2020-05-29 14:24 | Outpatient (CLI) | payer MEDICARE, BC, SELFPAY ==
[2019-05-09 11:36] VITALS: BMI 25.9
[2020-05-30 23:19] LABS: COVID19 Sendout Not Detected (Not Detect)
== END ==
PROVIDERS: PCP Family Medicine; Visit Provider Physician Assistant
DX: Z01.812 Encounter for preprocedural laboratory examination (principal)
CPT/HCPCS: 87635

== ENCOUNTER 2020-06-01 06:06 | Inpatient (IN) | payer MEDICARE, BC, SELFPAY ==
[2019-05-09 11:36] VITALS: BMI 25.9
[2020-05-31 11:58] VITALS: BMI 25.9
[2020-06-01] VITALS (17 sets, daily range): BP systolic 89–129; BP diastolic 45–79; PULSE 49–73; RESP 14–20; TEMP 36.2–36.9; O2SAT 93–98; BMI 24.7
--- NOTE | 2020-06-01 06:00 | DI.RAD.S_ITS ---
PROCEDURE: XR SHOULDER LT 1V INDICATIONS: Post op total shoulder TECHNIQUE: 1 views of the shoulder were acquired. [facility] [place] [place], [facility] . SHOULDER 2+ VIEWS LEFT, 01/11/2020, 14:35. FINDINGS: Expected postoperative changes are evident related to an interval reversed total left shoulder arthroplasty. The metallic prosthetic components appear to be appropriately seated without a periprosthetic fracture evident. Degenerative changes of the acromioclavicular joint are unchanged. Heterotopic ossification along the course of the coracoclavicular ligament is noted, unchanged. A surgical drainage catheter is seen overlying the shoulder. Areas of edema and soft tissue air are evident. No unexpected radiopaque foreign bodies are identified. IMPRESSION: Expected postsurgical changes related to a reversed total left shoulder arthroplasty Dictated by: Eliud Trotter M.D. on 06/01/2020 at 10:22 Approved by: Eliud Trotter M.D. on 06/01/2020 at 10:24
[2020-06-01] MEDS: LACTATED RINGERS 1,000 ML 100 ML IV (06:45)
[2020-06-01] MEDS: PREGABALIN 75 MG CAPSULE PO (06:57)
[2020-06-01] MEDS: ACETAMINOPHEN 325 MG TABLET 975 MG PO ×3 (06:57→21:28)
[2020-06-01] MEDS: CELECOXIB 200 MG CAPSULE PO (06:57)
--- NOTE | 2020-06-01 07:31 | SUR.OPER ---
Beach chair with Ann/Abner shoulder positioner. Lower body on padded OR bed. Head in foam padded head cradle, secured with straps. Non-operative arm secured <90 degrees abduction. Pillow under knees. Safety belt at thigh. Cloth tape over blanket over lower legs.
--- NOTE | 2020-06-01 07:43 | PM.PREOP ---
Pre-operative Note COVID-19 COVID-19 status: Negative Result date/Date tested (Pos, Neg/Pending): 05/29/20 Interval Note History & Physical reviewed/Exam performed by Physician: Yes Changes to H&P: No
[2020-06-01] MEDS: MIDAZOLAM 2 MG/2 ML VIAL IV (07:59)
[2020-06-01] MEDS: fentaNYL 100 MCG/2 ML INJ (07:59)
[2020-06-01] MEDS: CEFAZOLIN 2 GM/100 ML FROZ.PIGGY IV (08:14)
--- NOTE | 2020-06-01 08:14 | SUR.PREOP ---
Block start time [0800] . Monitoring initiated and maintained throughout procedure. Oxygen and medications given per anesthesiologist instructions. Patient remained stable throughout procedure, no adverse reactions noted. Block end time [0813 ].
[2020-06-01] MEDS: TRANEXAMIC ACID 1,000 MG VIAL 1000 MG INJ ×2 (08:20→08:59)
[2020-06-01] MEDS: BUPIVACAINE 0.25% W/ EPI 30 ML VIAL INJ (08:45)
--- NOTE | 2020-06-01 08:58 | CM.DANOTE ---
Discharge Planning/Care Management DCP: assessment: case received, EMR reviewed. Pt has not yet arrived to the floor from PACU. Pt is a 79 year old male who has admitted today for a scheduled shoulder surgery. Surgeon: Dr. Suarez Payer: Medicare and BCBS [place] PCP: Dr. Eliz Adams Pt identified his pre-op plan during that phone assessment as home/ see template below from 05/31: CAB P: anticipate PT and perhaps OT involvement post surgery. Will meet with pt either later today or in the morning to continue the dc planning assessment process. CM Discharge Assessment Start: 06/01/20 08:55 Freq: Status: Active Protocol: Document 06/01/20 08:57 ITV (Rec: 06/01/20 08:58 ITV [id number]) Discharge Planning Assessment Advance Directives? Yes Advance Directives on File No History Provided By Medical Record Prior Living Arrangements House Household Members spouse Review Status In Process Pre-Anesthesia Assessment Start: 05/31/20 11:58 Freq: Status: Active Protocol: Document 05/31/20 11:58 CAB (Rec: 05/31/20 12:10 CAB [id number]) Pre-Anesthesia Assessment Preferred Name Jay Patient Information Reviewed Via Phone Assessment Assessment Completed With Patient Diagnostic Results BMP/CMP,CBC,EKG Comment Outside labs/EKG scanned in - COVID @ 05/29/20 Negative Primary Care Provider Alexander Short Seen Specialist in Last 12 Months Yes Specialist Seen Orthopedist Primary Language Nepalese Preferred Language Nepalese Height 170.18 cm Weight 75.296 kg Body Mass Index (BMI) 25.9 Hearing Ability Hard of Hearing,Use of Hearing Aid Visual Assist Magnifying Glass Dentition Type Teeth, Natural Present Barriers to Learning None Other Aids No Hx Anesthesia Reactions No Hx Family Anesthesia Reaction No Hx Malignant Hyperthermia No Hx Blood Transfusions No Anesthesia Review Requested No Circular Knitter No alcohol intake current alcohol intake frequency a few times a week Smoking Status Former smoker how long ago did patient quit smoking Quit greater than 40 years ago Substance Use Type does not use Pain Present Pain Reported Musculoskeletal Symptoms Joint Pain,Limited Range of Motion,Neck Pain History of Falling (Recent or History of No ) Patient is completely paralyzed or No completely immobile Mental Status Oriented to own ability Is patient on oxygen? No Does patient have GÓMEZ/SOB No Hx Sleep Apnea No CPAP/BIPAP use not prescribed Currently Taking a Beta Manish No Can You Climb a Flight of Stairs Without Yes SOB Hx Chest Pain No Hx SOB No Hx Syncope or Dizziness No Anti-Coagulant Therapy No Has a Beautician Apprentice No Cardiac Testing No Hx Pacemaker/ICD No Cardiac Clearance Received Not Applicable Diet Type At Home Regular dysphagia No Urinary Catheter Present No Hx Urinary Self Catheterization No Diabetes No Hx Drug Resistant Organism No Presence of External or Internal Medical Yes: Cervical hardware, Right Devices shoulder Have you had any close contact with No someone diagnosed with COVID-19? Marital Status Lives With spouse Prior Living Arrangements House Support System Spouse Does the Patient Have Assistance After Yes Surgery Patient Discharge Plan Description Return Home Comment Pt advised overnight length of stay per surgeon Feels Safe in Current Environment Yes Been Physically Hurt or Threatened By a No Person in Current Environment Do you have thoughts of harming yourself None or others? Are you currently considering suicide? No Do you have a plan to hurt yourself or No Plan others? Do You Have Any Spiritual Beliefs That No May Affect Your HC Choices? Do You Have Any Cultural Practices That No May Affect Your HC Choices? Comment Jainism Who Can We Speak to About Patient's Care Family, friends Identifying Code for Release of Patient Declines to issue Information Health Care Proxy/Next of Kin Deja () Health Care Proxy Emergency Contact Name Deja ()Nancy (daughter ) Emergency Contact , Nancy: [phone] Advance Directives? Yes Advance Directives on File No Power of Service Rig Operator Yes Power of Service Rig Operator Name Deja () Power of Service Rig Operator PAC Instructions Medications to take/avoid, Nasal antibiotic,No ETOH/ petroleum product on skin DOS, NPO,Pre-surgical wash,Sturdy shoes/comfortable clothes,Do not bring valuables and remove jewelry
--- NOTE | 2020-06-01 09:17 | PM.PROC.1 ---
Procedures Date/Time Date of procedure: 06/01/20 Time of procedure: 07:55 Nerve Block Time out performed: Yes Location of anesthetic used: Left Interscalene (Brachial Plexus) Amount of anesthesia used (mL): 20 Nerve blocks: brachial plexus (Left) Procedure successful: Yes Patient tolerated procedure: well and no complications Complications: none Additional comments: Patient brought to block room. Verified patient, site and side. Monitors placed and O2 per NC applied. IV sedation with versed 1mg and fentanyl 50mcg given. Positioned with head of bed elevated, pillow and head turned to right. Chloroprep and sterile drapes applied. Twitch monitor and ultrasound used. Landmarks ID'd and confirmed with US. Good visualization of plexus. Local infiltration with Lidocaine 1% using 25g needle. 22g 50mm sheathed block needle advanced; + twitch to 5mAmp. Negative aspiration. Total volume given 20ml (15ml Ropivacaine 0.5% with 5ml Lidocaine 2%). Patient tolerated the procedure well without complications.
--- NOTE | 2020-06-01 10:41 | P.OP_ITS ---
Operative Date/Time/Diagnoses Date of procedure: 06/01/20 Time of procedure: 10:41 Pre-op diagnosis: Left shoulder rotator cuff tear arthropathy Post-op diagnosis: same Procedure & Clinicians Procedure: Left reverse total shoulder replacement Same procedure as scheduled: Yes Indications: The patient is had chronic left shoulder pain unresponsive to nonoperative therapies. Radiographic studies have revealed changes consistent with a massive rotator cuff tear and arthritis. They have elected to proceed with reverse total shoulder replacement after discussion of the risks benefits and alternatives. Risks discussed included but were not limited to: Failure to improve, instability, infection, nerve damage, deep venous thrombosis, pulmonary embolism, stroke, coma, myocardial infarction and . Surgeon: Steffen Suarez Life Skills Coordinator: Karen Tran'Brien Click Yes if Unassisted: No Anesthesia Type: General, Peripheral nerve block and Local Operative Notes Findings: Rotator cuff tear of the upper 2/3 of the subscapularis and the entirety of the supraspinatus moderate arthritic change in the glenohumeral joint. Closure Type: primary Specimen(s): none sent Prosthetic devices, grafts, tissues, transplants, or devices: Implants used in this procedure were manufactured by the [employer] and included an RSP reverse total shoulder prosthetic system with an 8 mm standard length stem with a standard proximal body, there is a 32 mm +4 standard socket, there was a 30 mm glenoid base plate with 4 locking screws measuring 22, 18, 14 and 14 mm in length. There was a 32 mm neutral offset glenoid head with retaining screw. Applied: drain(s) and implant(s) Estimated Blood Loss (mL): 150 Blood products transfused: none Procedure in detail: The patient was seen in the preoperative area where they identified the left shoulder as the operative site and this was marked with my initials. They received preoperative antibiotics and underwent the induction of an interscalene block. They were taken to the operating room and placed on the operating room table in a supine position with the underwent the induction of a general anesthetic. There were then repositioned in the ?beach chair? position using a dedicated positioner. All pressure points were well padded. The knees were slightly bent to prevent tension on the sciatic nerves. The left arm was prepared from the fingertips to the base of the neck with ChloraPrep in the usual fashion and draped through sterile drapes. An approximately 15 cm incision was created starting at the clavicle just above the coracoid and going to the deltoid insertion. A small cutaneous mole was excised with the incision. The deltopectoral interval was used to access the shoulder taking the vein to the medial side. The vein was protected throughout the case. The upper 1 cm of the pectoralis major was released. The biceps tendon was identified and used as a guide to releasing the remaining subscapularis. The biceps itself was tenodesed over the pectoralis tendon using a suture. The shoulder was dislocated and a proximal humeral osteotomy performed using an extramedullary guide. A proximal humeral protector was then placed. Retractors were placed access the glenoid. A 360 degree release was performed of the remaining subscapularis with care being taken to protect the axillary nerve. The soft tissues were removed circumferentially around the glenoid. The guide was used to drill the guide hole in the center of the inferior glenoid. The tap was placed and used as a guide for the reamer. The tap was then removed and the glenoid base plate inserted. The peripheral locking screws were then placed through the appropriate guide. A trial glenoid head was applied. We then turned our attention to the humerus. The proximal humeral protector was removed. Cylindrical reamers were used to size the canal. Broaching was then performed beginning with a small broach and working up until a line to line fit with the reamer was obtained. The guide for the proximal metaphyseal reamer was then applied and the metaphysis was reamed appropriately. The trial metaphyseal portion of the body was then applied to the broach. Trial reductions were performed and the size of the glenoid head and the cup were optimized. Stability was checked in maximal internal and external rotation and range of motion was checked to allow access to the top of the head, internal rotation to an excess of 50? in the ?scarecrow position? and the ability to reach the groin. The appropriate final prosthetic components were then opened. The glenoid head was impacted into position and checked for rotational and axial stability before placing the set screw. The humeral prosthetic was then impacted into position. The humeral cup was placed. The joint was relocated and irrigated. A deep drain was placed. The the anterior deltoid was repaired at a site were damage from the retractor had occurred and deltopectoral interval was reapproximated with 0 Vicryl. Subcutaneous layer was closed with interrupted 3-0 Vicryl and skin with a running 3 0 V lock suture. Subcutaneous tissues were then infiltrated with 0.5% Marcaine for postoperative pain control. An Aquacel Ag dressing was applied and the patient's arm was placed in a sling. The patient was then transferred to the recovery room in good condition having tolerated the procedure well. Complications: none Post-operative Condition: stable Disposition: PACU Plan for aftercare: The patient will be allowed to use his arm in front of his body but will remain in the sling otherwise. He likely will be discharged tomorrow if stable.
--- NOTE | 2020-06-01 10:42 | SUR.PHASEI ---
Patient arouses to voice. Denies pain. Unable to move left hand.
--- NOTE | 2020-06-01 11:02 | SUR.PHASEI ---
Left hand: Cap refill < 2 seconds, +2 radial pulse, patient states he can barely feel when I touch his hand, unable to move hand.
--- NOTE | 2020-06-01 14:22 | PT.IIE ---
Current Diagnoses Other specific arthropathies, not elsewhere classified, left shoulder (06/01/20) Unspecified rotator cuff tear or rupture of left shoulder, not specified as traumatic (06/01/20) Surgery Performed Operation Date: 06/01/20 07:45 Actual Procedures p Total Shoulder Arthroplasty - Reverse(Left) - Steffen Suarez MD Surgical History (Last Updated 05/31/20 @ 12:02 by Agata Cohen RN) History of arthroplasty of right shoulder (Acute 11/09/18) History of carpal tunnel surgery of left wrist (Acute) History of colonoscopy with polypectomy (Acute) History of right cataract extraction (Acute) Hx of arthroscopy of left knee (Acute) Hx of shoulder surgery (Acute) S/P cervical spinal fusion (Acute 12/03/16) Medical History (Last Updated 04/25/19 @ 09:14 by Agata Cohen RN) Asthma (Acute) BCC (basal cell carcinoma), eyelid (Acute) Former smoker (Acute) Hearing impaired (Acute) Left shoulder pain (Acute) Migraines (Acute) Osteoarthritis (Acute) Physical Therapy Inpatient Evaluation/Re-Eval M1 PT/OT-IP Prior Functional Status Start: 06/01/20 16:21 Freq: NEEDED Status: Active Protocol: Document 06/01/20 14:22 AB (Rec: 06/01/20 16:35 AB [id number]) Medical Review Prior Functional Status Medical History Reviewed Yes Communication able to make needs known Mobility and Gait pt stated that he is independent with all mobilities and ambulation without AD; still able to drive Social History Household Members spouse Living Arrangements House Number of Floors (Floors) 3 or More Floors Number of Stairs To Enter/Railing? 3 steps to enter without rails but has supports on B sides 16 steps with bilateral rails to bedroom level Home Environment Standard Height Toilet,Tub/ Shower Home Equipment Shower Seat without Backrest, Grab Bars In Shower M2 PT-IP Current Condition Start: 06/01/20 16:21 Freq: NEEDED Status: Active Protocol: Document 06/01/20 14:22 AB (Rec: 06/01/20 16:35 AB [id number]) Physical Therapy Current Condition Current Condition Evaluation Date 06/01/20 Treatment Diagnosis s/p L TSA reverse; difficulty in walking Onset Date 06/01/20 Precautions Shoulder Precautions Sling,PROM,Internal Rotation to Body,No External Rotation, No Abduction,Forward Flexion to 90 degrees,Pendulums Weight Bearing Status Weight Bearing Status Non-Weight Bearing Allowed Weight Bearing Amount (enter % NWB LUE or #) (%) M3 PT-IP Subjective Start: 06/01/20 16:21 Freq: NEEDED Status: Active Protocol: Document 06/01/20 14:22 AB (Rec: 06/01/20 16:35 AB [id number]) Subjective Physical Therapy Visit Type Type Initial Evaluation Visit Start Time 14:22 Visit Stop Time 14:55 Total Visit Minutes 33 Number of AUTOMATIC MACHINES SUPERVISOR Visits 0 Physical Therapy Visit Comments Patient Comments pt stated that he still does not have sensation on LUE Therapy Pain Assessment Pain Present Pain Present Denied Pain M4 PT-IP Mobility and Gait Start: 06/01/20 16:21 Freq: NEEDED Status: Active Protocol: Document 06/01/20 14:22 AB (Rec: 06/01/20 16:35 AB [id number]) PT-Bed Mobility Assessment Supine to Sit Supine to Sit Standby Assistance Sit to Supine Sit to Supine Standby Assistance Scooting Scooting to Edge of Bed Standby Assistance PT-Transfer Assessment Sit to and From Stand Sit to and from Stand Standby Assistance,1 Person Assistance,Use of Upper Extremities Equipment Transfer Assistive Device None,Gait Belt Orthotic/Prosthetic Devices or Brace: Yes Comments Mobility Comments educated on L shoulder precautions and ROM on L elbow /hands. pt still has numbness and no motor control on LUE due to block and unable to complete elbow/hand exercises. pendulum deferred until tomorrow when pt has some motor control. pt completed supine to sit SBA and was able to sit on EOB SBA. caregiver training conducted with pt's spouse for sling management. will require further training next tx session. completed sit to stand SBA and ambulated in room ~ 20 ft without AD CGA. pt requested to just go back to bed afterwards. completed sit to supine SBA. positioned pt in bed. call light and table placed within reach. Gait Assessment Gait Gait Assistance Required: Contact Guard Assist Distance (Feet) 20 Able to Maintain Weight Bearing Status Yes During Gait Assistive Devices Assistive Device None,Gait Belt Orthotic/Prosthetic Devices or Brace: Yes Gait Deviations General Gait Pattern Antalgic,Decreased Stride Length,Decreased Feet Clearance Factors Limiting Gait Function Factors Limiting Gait Function Decreased Activity Tolerance, Decreased Sensation,Decreased Strength,Limited Range of Motion,Poor Balance,Poor Safety Awareness PT-Balance Assessment Sitting Balance and Reactions Static Sitting Balance Ability Good Dynamic Sitting Balance Ability Good Standing Balance and Reactions Static Standing Balance Ability Fair Dynamic Standing Balance Ability Fair Device Used without AD M5 PT-IP Objective Assessments Start: 06/01/20 16:21 Freq: NEEDED Status: Active Protocol: Document 06/01/20 14:22 AB (Rec: 06/01/20 16:35 [id number]) Orientation Orientation/Cognition Level of Alertness Alert Orientation Name,Place,Situation Language Function Ability Hard of Hearing Gross Range of Motion Lower Extremity ROM Assessment Within Functional Limits Strength Lower Extremity Strength Assessment Within Functional Limits Sensation Assessment Sensation Gross Sensation Left UE Impaired Light Touch Absent Proprioception (Position) Absent Sensation Description Numbness Comments Sensation Comments pt still has numbness on LUE and does not have motor control M6 PT-IP Treatment Start: 06/01/20 16:21 Freq: NEEDED Status: Active Protocol: Document 06/01/20 14:22 AB (Rec: 06/01/20 16:35 AB [id number]) Physical Therapy Treatment Exercises Exercises Elbow Flexion/Extension,Wrist ROM,Hand ROM Education Education Provided Safety Brace Education Ashley Powell,Caregiver M7 PT-IP Assessment and Plan Start: 06/01/20 16:21 Freq: NEEDED Status: Active Protocol: Document 06/01/20 14:22 AB (Rec: 06/01/20 16:35 [id number]) PT Summary Assessment and Plan Potential Rehabilitation Potential Good Status of Condition at Evaluation Evolving Summary Impairments Pain,ROM,Strength,Balance, Coordination,Sensation,Tone, Cognition,Bed Mobility, Transfers,Gait,Activity Tolerance Assessment Summary pt s/p L reverse TSA and just had the surgery this morning. pt still c/o numbness and no motor control on LUE> pt requires min A for ambulation without AD. pt plans to go home with spouse to assist him . caregiver training initiated but further training is needed prior to d/c. pt also has to complete stair climbing training. Goals Bed Mobility Goal Independent Transfer Goal Independent Gait Goal Independent Gait Distance 150 Other Goals up/down 16 steps 1 rail SBA up/down 3 steps without rails SBA Days to Meet Goals 5 Frequency of Treatment Frequency Of Treatment Twice a Day Treatment Plan Physical Therapy Treatment Plan Bed Mobility Training,Transfer Training,Gait Training, Therapeutic Exercise,Balance Retraining,Post Op Education, Discharge Planning,Hot or Cold Pack,Neuromuscular Re-ed, Coordination Retraining,Manual Therapy Other Recommendations and Next Treatment caregiver training, stair Focus climbing training Recommendations To Nursing Amount of Assist Needed 1 Person Assist Discharge Recommendations PT Discharge Recommendations Home with Assistance, Outpatient PT Transportation Needs at Discharge Private Vehicle
--- NOTE | 2020-06-01 17:28 | DIET.PN ---
Dietary Progress Note Pt referred to RD s/p shoulder reconstructive surgery as he has been trying to lose weight, pt in with provider when RD attempted visit. Pts current BMI 24.7 in normal range and BMI >21 protective for individuals >65y. Recc pt not set weight loss goal any greater than 10#.
[2020-06-01] MEDS: OXYCODONE IR 5 MG TABLET PO ×2 (19:15→22:20)
--- NOTE | 2020-06-01 19:22 | PC.NURSE ---
Addendum entered by Helen Crocker R.N. 06/01/20 21:54: Continues to report sensation improving to left hand/digits. Able to senior telecommunications engineer tightly with strong left radial pulse palpated. Sling readjusted to support pt's LUE entirely. Ice to left shoulder. Hemovac emptied of 70 cc's serosang fluid. Denies difficulty with urination. Original Note: Pt awake, alert taking dinner without difficulty. Denies pain to left shoulder. Admits to numbness left hand, but within one hour notifies this movie writer sensation returning quickly to left hand. Continues to deny pain to left shoulder. Ice in place to aquacel dressing left shoulder. Hemovac compressed and pt's LUE in sling with pillows under elbow to support. Administered oxycodone after discussion with pt who explains does not want pain to get ahead as has experienced this with prior surgeries.
[2020-06-01] MEDS: DOCUSATE 100 MG CAPSULE PO (21:29)
[2020-06-01] MEDS: ASPIRIN EC 81 MG TABLET PO (21:29)
[2020-06-01] MEDS: SODIUM CHLORIDE 0.9% FLUSH 10 ML IV (22:20)
[2020-06-02] VITALS: BP 110/49; PULSE 54; RESP 18; TEMP 36.6; O2SAT 94
[2020-06-02] MEDS: OXYCODONE IR 5 MG TABLET PO ×3 (01:21→08:00)
--- NOTE | 2020-06-02 01:40 | PC.NURSE ---
Addendum entered by Manisha Correia R.N. 06/02/20 05:14: States pain is 5/10 so medicated with Oxycodone, repositioned and ice pack applied. Slept only at brief intervals. Requests SCDs be removed at this time; reminded to be ankle waving and patient verbalizes understanding. Original Note: Patient is alert and oriented. Breath sounds CTA with RA sat of 94%. HRR but intermittently bradycardic in 50's. Denies nausea. BT present and is passing flatus. Voiding per urinal; denies dysuria, frequency or urgency. Aquacel dressing to left shoulder is CDI; hemovac is intact and compressed. Has left arm in sling. CMS is intact. Does complain of 5/10 achy pain in shoulder so was medicated with Oxycodone and ice pack applied. Is able to move himself in bed with some assistance to get out of bed due to limited use of left UE. Out of bed with SBA for safety. Wearing bilateral calf SCD's. Fall risk score is moderate and bed alarm is activated.
[2020-06-02 04:39] VITALS: BP 112/79; PULSE 57; RESP 16; TEMP 36.9; O2SAT 96
[2020-06-02 06:36] LABS: Hematocrit 34.2 % (41-53); Mean Corpuscular HGB Conc 35.1 % (30-36); Mean Corpuscular Volume 88.3 fL (80-100); Platelet Count 170 X10^3/uL (150-400); Red Blood Cell Count 3.87 X10^6/uL (4.5-5.9); Red Cell Distribution Width 13.5 % (11.6-14.8); White Blood Cell Count 8.5 X10^3/uL (4.5-11.0)
[2020-06-02 07:26] VITALS: BP 121/66; PULSE 62; RESP 18; TEMP 36.5; O2SAT 96
[2020-06-02] MEDS: CHOLECALCIFEROL (VITAMIN D3) 1,000 UNIT TABLET 4000 UNIT PO (07:50)
[2020-06-02] MEDS: ACETAMINOPHEN 325 MG TABLET 975 MG PO (07:50)
[2020-06-02] MEDS: CYANOCOBALAMIN (VITAMIN B-12) 500 MCG TABLET 1000 MCG PO (07:51)
[2020-06-02] MEDS: SODIUM CHLORIDE 0.9% FLUSH 10 ML IV (07:51)
[2020-06-02] MEDS: DOCUSATE 100 MG CAPSULE PO (07:51)
--- NOTE | 2020-06-02 07:54 | PC.NURSE ---
Addendum entered by Yanet Shah R.N. 06/02/20 12:11: Drain removed, IV removed, patient tolerated well. Discharge education given while present. Prescription given to patient. Denies further needs at this time. Patient discharged via wheelchair. Original Note: Patient sitting up in bed. Left shoulder pain reported 3/10, sling in place. LUE CMS intact. Drain is intact and compressed. IV site flushed, intact, saline locked. Patient is voiding in the urinal, reports no BM since 05/31, BSx4, abdomen is soft/non tender. Patient is using the IS, lung sounds clear bilaterally, room air. Patient reminded to call for ambulation, bed alarm on. Belongings in reach. Patient expresses no further needs at this time.
--- NOTE | 2020-06-02 09:38 | P.DS_ITS ---
History of Present Illness History of Present Illness Date Patient Seen: 06/02/20 Time Patient Seen: 09:38 Chief complaint: INPT Narrative: The history and physical is contained in the chart in a previously completed note. Please refer to that note for this information. Discharge Providers Provider Date of admission: 06/01/20 06:06 Discharge Date: 06/02/20 Primary care physician: Alexander Short MD Consults: 06/01/20 12:02 Consult to Discharge Planning Routine Comment: Consult to Physical Therapy Evaluate & Treat Comment: Physician Instructions: Pendulums, may use hand if front of torso 06/01/20 12:43 Consult to Dietitian, Adult Routine Comment: Reason For Exam: has been trying to lose weight Discharge provider: Steffen Suarez MD Summary Hospital Course Discharge Diagnosis: 1. Left shoulder rotator cuff tear arthropathy 2. Mild post hemorrhagic anemia Hospital Course: the patient was admitted to the hospital and taken directly to the operating room on June 01, 2020. He underwent a left reverse total shoulder replacement without complication. He was stable postoperatively with control of pain with oral medication. On postoperative day 1 he was felt to be stable for discharge home. Status at Discharge Cognitive/behavioral status at discharge: oriented Functional status at discharge: independent ambulation Overall status at discharge: patient is progressing back to baseline Time Spent with Patient Time spent: Less than 30 minutes Exam Vital Signs (past 8 hours): - 06/02/20 04:39 06/02/20 07:26 Temperature 98.4 F 97.7 F Pulse Rate 57 L 62 Respiratory Rate 16 18 Blood Pressure 112/79 121/66 Pulse Oximetry 96 96 Oxygen Delivery Method Room Air Oxygen Flow Rate 0 Narrative Exam Narrative: Left shoulder wound is dressed with no drainage on the bandage. Light touch is intact in the radial, ulnar, median, musculocutaneous and axillary nerve distribution. He can extend his thumb, abduct his thumb, abduct his fingers and can fire his biceps and deltoid. Objective Labs Result Diagrams: 06/02/20 06:28 Labs: Laboratory Results - last 24 hr 06/02/20 06:28 WBC 8.5 RBC 3.87 L Hgb 12.0 L Hct 34.2 L MCV 88.3 MCH 31.0 MCHC 35.1 RDW 13.5 Plt Count 170 Discharge Assessment & Plan Assessment and Plan Assessment: Stable postoperative day 1 status post left reverse total shoulder replacement for rotator cuff tear arthropathy. He has a mild post hemorrhagic anemia as a nticipated. Pain is currently controlled with oral medication. He has been ambulatory. Plan of Treatment: Discharge today with follow-up in 2 weeks in my office. He has been given a p rescription for oxycodone and instructions regarding the use of Tylenol and low- dose aspirin. DVT prophylaxis will be with the low-dose aspirin. He has been instructed to keep the left hand in front of his torso below shoulder level initially. He will be allowed to do pendulum exercises. Discharge Plan Discharge Plan Patient Disposition: Home Discharge orders & Medications Prescriptions: New acetaminophen 325 mg Tablet 975 mg PO TID 30 Days Qty: 270 RF: 0 aspirin 81 mg Tablet,Delayed Release (Dr/Ec) 81 mg PO BID 42 Days Qty: 84 RF: 0 oxycodone 5 mg Tablet 5 mg PO Q4H PRN (Reason: Pain, Moderate (4-6)) Qty: 40 RF: 0 Continued cyanocobalamin (vitamin B-12) [Vitamin B-12] 250 MCG tablet 1,000 mg PO QDAY Qty: 0 RF: 0 Vitamin D3 4,000 UNIT capsule 4,000 u PO QDAY Qty: 0 RF: 0 Discontinued acetaminophen 325 mg tablet 325 mg PO Q4H PRN (Reason: pain) RF: 0 Follow up/Referrals: Alexander Short MD [Primary Care Provider] - Steffen Suarez MD [Physician] - 2 Weeks Discharge Health Status Multidrug resistant organism: No MDRO Diet/Activity/Treatments Diet: Diet as Tolerated and Regular Activity: You may use your left hand in front of your torso below shoulder level. You may do pendulum exercises. Please wear the sling except for hygiene. Cold/Heat Therapy: Apply ice to the left shoulder for 15 minutes every hour as needed for pain control. Skin/Wound/Dressing Care Report to your healthcare provider any signs of infection, such as:: chills, fever, night sweats, increased pain, unusual drainage and unusual redness Dressing: Leave the dressing in place until your postoperative follow-up. You may shower with the dressing in place. If the center strip of the dressing becomes saturated with either water or blood, please call the office to have it evaluated. Visit Report/Discharge Packet Instructions: DI for Prescription Opioid Use, DI for Shoulder Replacement Stand Alone Forms: Surgery Discharge Discharge Data Primary Care Provider: Alexander Short
--- NOTE | 2020-06-02 10:50 | PT.IPTN ---
Current Diagnoses Other specific arthropathies, not elsewhere classified, left shoulder (06/01/20) Unspecified rotator cuff tear or rupture of left shoulder, not specified as traumatic (06/01/20) Surgery Performed Operation Date: 06/01/20 07:45 Actual Procedures p Total Shoulder Arthroplasty - Reverse(Left) - Steffen Suarez MD Physical Therapy Treatment Note M2 PT-IP Current Condition Start: 06/01/20 16:21 Freq: NEEDED Status: Active Protocol: Document 06/01/20 14:22 AB (Rec: 06/01/20 16:35 AB [id number]) Physical Therapy Current Condition Current Condition Evaluation Date 06/01/20 Treatment Diagnosis s/p L TSA reverse; difficulty in walking Onset Date 06/01/20 Precautions Shoulder Precautions Sling,PROM,Internal Rotation to Body,No External Rotation, No Abduction,Forward Flexion to 90 degrees,Pendulums Weight Bearing Status Weight Bearing Status Non-Weight Bearing Allowed Weight Bearing Amount (enter % NWB LUE or #) (%) M3 PT-IP Subjective Start: 06/01/20 16:21 Freq: NEEDED Status: Active Protocol: Document 06/02/20 10:10 KS (Rec: 06/02/20 12:06 KS [id number]) Subjective Physical Therapy Visit Type Type Treatment Note Visit Start Time 10:10 Visit Stop Time 10:50 Total Visit Minutes 40 Number of RESEARCH AND EVALUATION MANAGER Visits 1 Physical Therapy Visit Comments Patient Comments Pt agreeable to work w/ therapy. Therapy Pain Assessment Pain When Pain Assessed At Rest Pain Present Pain Present Pain Reported Location left shoulder Intensity 3 Scale Used Numeric (0 - 10) Description Tender M4 PT-IP Mobility and Gait Start: 06/01/20 16:21 Freq: NEEDED Status: Active Protocol: Document 06/02/20 10:10 KS (Rec: 06/02/20 12:06 KS [id number]) PT-Bed Mobility Assessment Supine to Sit Supine to Sit Standby Assistance Sit to Supine Sit to Supine Standby Assistance Scooting Scooting to Edge of Bed Standby Assistance PT-Transfer Assessment Sit to and From Stand Sit to and from Stand Standby Assistance,1 Person Assistance,Use of Upper Extremities Equipment Transfer Assistive Device None,Gait Belt Orthotic/Prosthetic Devices or Brace: Yes Transfers Transfer Destination Bed Transfer Ability Level of Assist Standby Assistance Comments Mobility Comments Pt in bed upon arrival from therapy. Able to recall shoulder precautions. Pt SBA for sup<>sit, scooting EOB, and sit<>stand. Pt then ambulated to stairs ~150 ft w/ SBA. Pt completed 18 total steps, 1st set w/o handrails and remaining 5 sets w/ use of R hand rail ascending, L hand rail descending and step over step pattern. Pt ambulated and ascended/descended stairs safely w/o LOB or need for cues. Pt ambulated ~150 ft back to room and was instructed in shoulder exercises including scapualar retraction, pendulums, elbow, wrist, and finger flex/ext all of which he tolerated well. Pts states she feels comfortable in sling application. Pt left in room w / all needs in reach. Gait Assessment Gait Gait Assistance Required: Standby Assistance Distance (Feet) 300 Able to Maintain Weight Bearing Status Yes During Gait Assistive Devices Assistive Device None,Gait Belt Orthotic/Prosthetic Devices or Brace: Yes Gait Deviations General Gait Pattern Antalgic,Decreased Stride Length,Decreased Feet Clearance Factors Limiting Gait Function Factors Limiting Gait Function Decreased Activity Tolerance, Decreased Sensation,Decreased Strength,Limited Range of Motion Comments Gait Comments Please refer to mobility section for details. Stair Climbing Assessment Evaluation Level of Assist On Stairs Standby Assistance Devices Stair Climbing Assistive Devices None,Right Railing Technique/Endurance Stair Climbing Direction Ascend and Descend Stair Climbing Technique Step Over Step Number of Steps Climbed 3 Stair Climbing Set # Repetitions (reps) 6 Comments Stair Climbing Comments Please refer to mobility section for details. PT-Balance Assessment Sitting Balance and Reactions Static Sitting Balance Ability Good Dynamic Sitting Balance Ability Good Standing Balance and Reactions Static Standing Balance Ability Good Dynamic Standing Balance Ability Good Device Used without AD M5 PT-IP Objective Assessments Start: 06/01/20 16:21 Freq: NEEDED Status: Active Protocol: Document 06/01/20 14:22 AB (Rec: 06/01/20 16:35 AB [id number]) Orientation Orientation/Cognition Level of Alertness Alert Orientation Name,Place,Situation Language Function Ability Hard of Hearing Gross Range of Motion Lower Extremity ROM Assessment Within Functional Limits Strength Lower Extremity Strength Assessment Within Functional Limits Sensation Assessment Sensation Gross Sensation Left UE Impaired Light Touch Absent Proprioception (Position) Absent Sensation Description Numbness Comments Sensation Comments pt still has numbness on LUE and does not have motor control M6 PT-IP Treatment Start: 06/01/20 16:21 Freq: NEEDED Status: Active Protocol: Document 06/02/20 10:10 KS (Rec: 06/02/20 12:06 KS [id number]) Physical Therapy Treatment Exercises Exercises Shoulder Pendulums,Elbow Flexion/Extension,Wrist ROM, Hand ROM Education Education Provided Precautions,Post-Op Packet, Safety M7 PT-IP Assessment and Plan Start: 06/01/20 16:21 Freq: NEEDED Status: Active Protocol: Document 06/02/20 10:10 KS (Rec: 06/02/20 12:06 KS [id number]) PT Summary Assessment and Plan Potential Rehabilitation Potential Good Status of Condition at Evaluation Evolving Summary Impairments Pain,ROM,Strength,Balance, Coordination,Sensation,Tone, Cognition,Bed Mobility, Transfers,Gait,Activity Tolerance Assessment Summary Pt able to recall precautions and had good tolerance for UE exercises including scapular retraction, pendulums, elbow, wrist, and hand ROM. Pt able to safely ambulate ~300 ft w/o AD and ascended/descend 18 steps safely w/ step over step pattern. Pts states she feels comfortable to tu/doff pts sling. Pt will benefit from outpatient rehab to improve shoulder strength and ROM when appropriate. Goals Bed Mobility Goal Independent Transfer Goal Independent Gait Goal Independent Gait Distance 150 Other Goals up/down 16 steps 1 rail SBA up/down 3 steps without rails SBA Days to Meet Goals 5 Frequency of Treatment Frequency Of Treatment Twice a Day Treatment Plan Physical Therapy Treatment Plan Bed Mobility Training,Transfer Training,Gait Training, Therapeutic Exercise,Balance Retraining,Post Op Education, Discharge Planning,Hot or Cold Pack,Neuromuscular Re-ed, Coordination Retraining,Manual Therapy Other Recommendations and Next Treatment caregiver training, stair Focus climbing training Recommendations To Nursing Amount of Assist Needed 1 Person Assist Discharge Recommendations PT Discharge Recommendations Home with Assistance, Outpatient PT Transportation Needs at Discharge Private Vehicle
--- NOTE | 2020-06-02 13:09 | CM.DPC ---
DCP: continued: case discussed in Team Rounds with PT noting that pt had been ok'd for d/c to home. A check in later showed that pt had left for home setting in company of . No d/c concerns were noted by the care team members.
== END 2020-06-02 12:05 | disposition home or self-care (01) | DRG 483 ==
PROVIDERS: Admitting Provider Orthopaedic Surgery; PCP Family Medicine; Referring Provider Orthopaedic Surgery; Visit Provider Orthopaedic Surgery
PROC: 0RRK00Z Replacement of Left Shoulder Joint with Reverse Ball and Socket Synthetic Substitute, Open Approach (ICD-10-PCS; CPT 23472; principal; 2020-06-01 07:45)
DX: M12.812 Other specific arthropathies, not elsewhere classified, left shoulder (principal); M75.102 Unspecified rotator cuff tear or rupture of left shoulder, not specified as traumatic; Z96.611 Presence of right artificial shoulder joint; R00.1 Bradycardia, unspecified; J45.909 Unspecified asthma, uncomplicated; Z01.812 Encounter for preprocedural laboratory examination; Z11.59 Encounter for screening for other viral diseases
CPT/HCPCS: 36415; 64450; 73020; 85027; 87635; 97110; 97116; 97162; 97530; C1776; J0690; J1100; J2250; J2405; J3010